=== PATIENT | male | born 1960 | race Caucasian/White ===

== ENCOUNTER 2020-02-12 12:18 | Emergency (ER) | payer OTHER, SELFPAY ==
--- NOTE | 2020-02-12 | XR_ITS ---
EXAMINATION: XR LUMBOSACRAL SPINE CLINICAL INFORMATION: Low back pain. COMPARISON: None TECHNIQUE: Three views of the lumbosacral spine. FINDINGS: The vertebral bodies and posterior elements are normal. The disc spaces are preserved and the vertebral alignment is normal. The paraspinal soft tissues are normal. IMPRESSION: Unremarkable examination.
[2020-02-12 12:25] VITALS: BP 135/85; BP 136/80; PULSE 63; PULSE 67; RESP 16; TEMP 36.7; O2SAT 100; O2SAT 99; BMI 29.9
--- NOTE | 2020-02-12 13:33 | ED_ITS ---
HPI - Back Pain/Injury General Chief Complaint: Back Pain/Injury Stated Complaint: NON TRAUMATIC BACK PAIN PER EMS Time Seen by Provider: 02/12/20 13:33 Source: patient Mode of arrival: ambulatory Limitations: no limitations History of Present Illness HPI Narrative: patient's history of off and on back problems started in 1998 muscle getting in spasm when the patient bends for some time usually gets better in a day or 2. never been admitted to the hospital never had an MRI or senior design engineering specialist seeing the patient. 2 days ago patient was bending while painting and got his lower back spasm unable to ambulate crawling on the floor no leg weakness no paresthesias no bladder or bowel involvement patient was taking ibuprofen without much relief and started on Flexeril by his PCP yesterday without much response Related Data Allergies Allergy/AdvReac Type Severity Reaction Status Date / Time No Known Allergies Allergy Unverified 02/12/20 12:24 Review of Systems Review of Systems: REVIEW OF SYSTEMS: Pertinent positives and negatives are stated above in the history. GEN: no fevers, chills, fatigue HEENT: no nasal congestion, sore throat, ear pain NEURO: no headache, dizziness, focal weakness PULM: no cough, shortness of breath CV: no chest pain, palpitations, LE edema ABD: no abdominal pain, nausea, vomiting, diarrhea : no dysuria, urgency, frequency SKIN: no rash ROS otherwise negative x 10 PMFSH Past Medical History Medical History Chronic back pain No known health problems Vertigo Social History Social History Smoking Status: Never smoker Smoked in Last 30 Days: No Use of substances other than those prescribed or required for medical reasons: No Advance Directives: No Advance Directives Information Provided: Yes Physical Exam Vital Signs and I&O and Narrative: Vital Signs and I&O: Vital Signs Temp 98.0 F 02/12/20 12:25 Pulse 63 02/12/20 15:17 Resp 16 02/12/20 15:17 BP 128/78 02/12/20 15:17 Pulse Ox 95 02/12/20 15:17 Intake & Output 02/11/20 02/12/20 02/12/20 18:59 06:59 18:59 Weight 97.522 kg Body Mass Index 29.9 VITAL SIGNS: Reviewed. GENERAL: Well developed, well nourished, in moderate distress. HEAD: Normocephalic/atraumatic, Posterior oropharynx was without edema, erythema or exudate. EYES: PERRLA, Pupils <>, EOMI intact without pain, no nystagmus/pallor/icterus noted EARS: Ext canals without abnormality, TMs non-bulging and non-erythematous NOSE: Nares patent bilateral OROPHARYNX: no oral lesions noted, posterior pharynx clear and non-erythematous without noted tonsillar enlargement/erythema/exudates NECK: Supple, no adenopathy LUNGS: Normal breath sounds. No adventitious sounds or accessory muscle use. SpO2<> CARDIOVASCULAR: Regular rate and rhythm without noted murmurs, no JVD or lower extremity edema. ABDOMEN: Soft, non-tender, non-distended with bowel sounds. No rigidity. No guarding. No palpable masses or hernias noted MUSCULOSKELETAL: moderate tenderness paraspinal at lumbar area, no deformities, or effusions noted on gross inspection. [id number] both lower extremities normal good plantar flexion and extension. Secral sensations are intact EXTREMITIES: No cyanosis, clubbing or edema. SKIN: Inspection of the skin reveals no rashes, ulcerations, jaundice, pallor, or petechiae NEUROLOGIC: Alert and oriented x 3. Strength and sensation to light touch were grossly intact x 4. Course Course Course Narrative: patient with severe low back muscle spasm without any clinical damage to spinal cord . With normal motor strength. Patient received IM morphine 10 mg and Decadron 10 mg p.o. still feeling lot of spasm and not able to move will get IV Dilaudid Soma p.o. and Toradol IV. Patient x-rays negative for any bony damage. patient signed out to Dr. Oliver for evaluation and discharge
[2020-02-12] MEDS: Morphine Sulfate 4 MG/ML CARTRIDGE 10 MG IM (14:14)
[2020-02-12] MEDS: dexAMETHasone 2 MG TABLET 10 MG PO (14:15)
[2020-02-12 15:17] VITALS: BP 128/78; PULSE 63; RESP 16; O2SAT 95
[2020-02-12] MEDS: HYDROmorphone HCl 1 MG/ML SYRINGE IVPUSH (16:38)
[2020-02-12] MEDS: Ketorolac Tromethamine 30 MG/ML VIAL IVPUSH (16:38)
[2020-02-12] MEDS: carisoprodoL 350 MG TABLET PO (16:39)
[2020-02-12 17:18] VITALS: BP 132/84; PULSE 73; RESP 14; O2SAT 94
[2020-02-12 18:30] VITALS: BP 119/69; PULSE 66; RESP 16; O2SAT 93
[2020-02-12 20:08] VITALS: BP 119/68; PULSE 69; RESP 16; TEMP 36.6; O2SAT 96
[2020-02-12 22:00] VITALS: RESP 16
[2020-02-13] VITALS: BP 118/68; PULSE 65; RESP 16; TEMP 36.7; O2SAT 94
[2020-02-13 03:02] VITALS: BP 92/37; PULSE 64; RESP 16; O2SAT 95
[2020-02-13 06:00] VITALS: RESP 16
[2020-02-13 08:06] VITALS: BP 92/37; PULSE 64; O2SAT 95
[2020-02-13 08:35] VITALS: BP 121/66; PULSE 65; RESP 17; TEMP 36.6; O2SAT 95
--- NOTE | 2020-02-13 14:45 | MHC.CM.ED ---
pt has requested to have ref. made to [facility] for [facility] and home PT. ref. was made and pt accepted. john rn and md are aware of dc plan. cm to cont. to follow.
== END 2020-02-13 11:57 | disposition home or self-care (01) ==
PROVIDERS: Emergency Provider Emergency Medicine; PCP Internal Medicine
DX: M54.5 Low back pain (principal); M62.830 Muscle spasm of back
CPT/HCPCS: 72100; 96372; 96374; 96375; 97162; 99284; 99285; J1170; J1885; J2270

== ENCOUNTER 2020-07-22 13:50 | Outpatient (REF) | payer OTHER, SELFPAY ==
[2020-07-22 14:41] LABS: Influenza A PCR NEGATIVE (Negative); Influenza B PCR NEGATIVE (Negative); Resp Syncy Virus RNA Qual PCR NEGATIVE (Negative); SARS COV2 PCR INHOUSE NEGATIVE (Negative)
== END 2020-07-22 13:51 | disposition home or self-care (01) ==
LOC: HO.LNP 13:50
PROVIDERS: Visit Provider Internal Medicine
DX: R68.83 Chills (without fever) (principal); R51.9 Headache, unspecified; R52 Pain, unspecified; Z20.822 Contact with and (suspected) exposure to COVID-19
CPT/HCPCS: 0241U

== ENCOUNTER 2020-07-29 12:23 | Outpatient (REF) | payer OTHER, SELFPAY ==
[2020-07-29 13:08] LABS: MANUAL DIFF FLAG NO
[2020-07-29 13:12] LABS: Basophils Absolute Auto 0.1 X10*3/uL (0.0-0.2); Eosinophils Absolute Auto 0.1 X10*3/uL (0.0-0.4); Eosinophils Percent Auto 1.6 % (0-4); Hematocrit 43.2 % (42-52); Hemoglobin 14.5 g/dl (14.0-18.0); Imm Gran Abs Auto 0.02 X10*3/uL (0.00-0.03); Imm Gran Pct Auto 0.3 % (0.0-0.4); Lymphocytes Absolute Auto 1.9 X10*3/uL (1.2-4.9); Lymphocytes Percent Auto 31.2 % (20-40); Mean Corpuscular HGB Conc 33.6 g/dl (31.0-36.0); Mean Corpuscular Volume 89.3 fL (80-98); Mean Platelet Volume 9.4 fL (9.4-12.4); Monocytes Absolute Auto 0.5 X10*3/uL (0.1-1.2); Monocytes Percent Auto 8.1 % (2-11); Neutrophils Absolute Auto 3.6 X10*3/uL (2.0-8.3); Neutrophils Percent Auto 57.8 % (45-73); Platelet Count 266 X10*3/uL (160-400); Red Blood Count 4.84 X10*6/uL (4.60-5.80); White Blood Count 6.2 X10*3/uL (4.8-10.8)
[2020-07-29 13:43] LABS: Alanine Aminotransferase 30 U/L (0-40); Albumin Level 4.4 g/dL (3.5-5.0); Alkaline Phosphatase 69 U/L (39-117); Anion Gap 14 (12-20); Aspartate Amino Transferase 20 U/L (5-37); Bilirubin Total 0.5 mg/dL (0.0-1.0); Blood Urea Nitrogen 22 mg/dL (9-16); Calcium 9.4 mg/dL (8.4-10.2); Carbon Dioxide 29 mmol/L (22-29); Chloride 101 mmol/L (96-108); Estimated Glomerular Filt Rate 54; Glucose Random 113 mg/dL (60-115); Potassium 4.5 mmol/L (3.3-5.1); Sodium 139 mmol/L (135-145); Total Protein 6.9 g/dL (6.5-8.0)
[2020-07-29 14:04] LABS: Free T4 (Free Thyroxine) 1.05 ng/dL (0.71-1.85); Thyroid Stimulating Hormone 1.01 uIU/mL (0.32-4.0)
[2020-07-29 14:09] LABS: Glucose Urine UA NEG (NEG); Leukocyte Esterase Urine NEG (NEG); Nitrite Urine NEG (NEG); PH 5.5 (5.0-8.0); Specific Gravity - Urine >= 1.030 (1.005-1.025); Urine Blood TRACE (NEG); Urine Ketones NEG (NEG); Urine Protein NEG (NEG-TRACE)
[2020-07-29 14:24] LABS: Appearance Urine CLEAR; Color Urine YELLOW
[2020-07-29 15:24] LABS: RBC Urine 0 /HPF (0); Squamous Epithelial Cell Urine TRACE /LPF; WBC Urine 0 /HPF (0-4)
== END 2020-07-29 12:24 | disposition home or self-care (01) ==
LOC: HO.LAB 12:23
PROVIDERS: PCP Internal Medicine; Visit Provider Internal Medicine
DX: R51.9 Headache, unspecified (principal); R42 Dizziness and giddiness; R53.83 Other fatigue; B34.9 Viral infection, unspecified
CPT/HCPCS: 36415; 80053; 81001; 81003; 82550; 84439; 84443; 85025; 86140; 87086

== ENCOUNTER 2020-08-13 15:20 | Outpatient (REF) | payer OTHER, SELFPAY ==
--- NOTE | ~2020-08-13 | CT_ITS ---
EXAMINATION: CT HEAD WITH/WITHOUT CONTRAST CLINICAL INFORMATION: Dizziness with vertigo COMPARISON: None TECHNIQUE: Contiguous axial imaging was performed from the skull base to vertex before and after the administration of 85 mL of Omnipaque [address] examination was performed using dose optimization techniques as appropriate, variously including the following: *Automated exposure control *Adjustment of mA and/or kV according to patient size (this includes techniques or standardized protocols for targeted exams where dose is matched to indication/reason for exam; i.e. extremities or head) *Use of iterative reconstruction technique DLP: 1894 mGy-cm FINDINGS: There is no evidence of acute intracranial hemorrhage or territorial infarction. No abnormal mass effect or midline shift is seen. Noe to white matter differentiation is well preserved. No extra-axial fluid collections are identified. There is no abnormal enhancement. The ventricles are normal in size. There is no abnormal attenuation within the brain parenchyma. The osseous structures and soft tissues are normal. The mastoid air cells and visualized portions of the paranasal sinuses are well aerated. CT/CT head/brain wo/w con IMPRESSION: No acute intracranial pathology.
== END 2020-08-13 15:21 | disposition home or self-care (01) ==
LOC: HO.CT 15:20
PROVIDERS: PCP Internal Medicine; Visit Provider Internal Medicine
DX: H81.4 Vertigo of central origin (principal)
CPT/HCPCS: 70470; Q9967

== ENCOUNTER 2022-01-30 16:55 | Outpatient (REF) | payer OTHER, SELFPAY ==
[2022-01-30 17:44] LABS: Influenza A PCR NEGATIVE (Negative); Influenza B PCR NEGATIVE (Negative); Resp Syncy Virus RNA Qual PCR NEGATIVE (Negative); SARS COV2 PCR INHOUSE NEGATIVE (Negative)
== END 2022-01-30 16:56 | disposition home or self-care (01) ==
LOC: HO.LNP 16:55
PROVIDERS: Visit Provider Internal Medicine
DX: Z20.822 Contact with and (suspected) exposure to COVID-19 (principal); R50.9 Fever, unspecified
CPT/HCPCS: 0241U

== ENCOUNTER 2022-04-06 12:37 | Outpatient (REF) | payer OTHER, SELFPAY ==
[2022-04-06 12:51] LABS: MANUAL DIFF FLAG NO
[2022-04-06 13:19] LABS: Basophils Absolute Auto 0.1 X10*3/uL (0.0-0.2); Basophils Percent Auto 0.8 % (0-2); Eosinophils Absolute Auto 0.1 X10*3/uL (0.0-0.4); Eosinophils Percent Auto 1.7 % (0-4); Hematocrit 44.2 % (42.0-52.0); Hemoglobin 14.5 g/dl (14.0-18.0); Imm Gran Abs Auto 0.02 X10*3/uL (0.00-0.03); Imm Gran Pct Auto 0.3 % (0.0-0.4); Lymphocytes Percent Auto 30.4 % (20-40); Mean Corpuscular HGB Conc 32.8 g/dl (31.0-36.0); Mean Corpuscular Hemoglobin 29.5 pg (27.0-33.0); Mean Corpuscular Volume 89.8 fL (80.0-98.0); Mean Platelet Volume 9.9 fL (9.4-12.4); Monocytes Absolute Auto 0.5 X10*3/uL (0.1-1.2); Monocytes Percent Auto 8.2 % (2-11); Neutrophils Absolute Auto 3.9 x10*3/uL (2.0-8.3); Neutrophils Percent Auto 58.6 % (45-73); Platelet Count 252 X10*3/uL (160-400); Red Blood Count 4.92 X10*6/uL (4.60-5.80); White Blood Count 6.6 X10*3/uL (4.8-10.8)
[2022-04-06 13:45] LABS: Alanine Aminotransferase 27 U/L (0-40); Albumin Level 4.6 g/dL (3.5-5.0); Alkaline Phosphatase 83 U/L (39-117); Anion Gap 14 (12-20); Aspartate Amino Transferase 21 U/L (5-37); Bilirubin Total 0.6 mg/dL (0.0-1.0); Blood Urea Nitrogen 20 mg/dL (9-16); Calcium 9.7 mg/dL (8.4-10.2); Carbon Dioxide 28 mmol/L (22-29); Chloride 103 mmol/L (96-108); Cholesterol 267 mg/dL; Estimated Glomerular Filt Rate > 60; Glucose Random 87 mg/dL (60-115); HDL Cholesterol 55 mg/dL; LDL Cholesterol Calculated 191 mg/dl; Potassium 4.7 mmol/L (3.3-5.1); Sodium 140 mmol/L (135-145); Total Protein 7.2 g/dL (6.5-8.0); Triglycerides 109 mg/dL
[2022-04-06 14:05] LABS: Prostate Specific Antigen 1.54 ng/mL (<0.05-4.0)
[2022-04-06 17:21] LABS: Appearance Urine Clear; Color Urine Yellow; Glucose Urine UA Negative (Negative); Leukocyte Esterase Urine Negative (Negative); Nitrite Urine Negative (Negative); PH 5.5 (5.0-9.0); Urine Blood Negative (Negative); Urine Ketones Negative (Negative); Urine Protein Negative (Neg-Trace)
== END 2022-04-06 12:38 | disposition home or self-care (01) ==
LOC: HO.LAB 12:37
PROVIDERS: PCP Internal Medicine; Visit Provider Internal Medicine
DX: Z00.00 Encounter for general adult medical examination without abnormal findings (principal); Z12.5 Encounter for screening for malignant neoplasm of prostate
CPT/HCPCS: 36415; 80053; 80061; 81003; 84153; 85025

== ENCOUNTER 2022-04-29 15:04 | Outpatient (REF) | payer OTHER, SELFPAY ==
[2022-04-29 15:50] LABS: Influenza A PCR NEGATIVE (Negative); Influenza B PCR NEGATIVE (Negative); Resp Syncy Virus RNA Qual PCR NEGATIVE (Negative); SARS COV2 PCR INHOUSE NEGATIVE (Negative)
== END 2022-04-29 15:05 | disposition home or self-care (01) ==
LOC: HO.LNP 15:04
PROVIDERS: Visit Provider Internal Medicine
DX: Z20.822 Contact with and (suspected) exposure to COVID-19 (principal); R05.9 Cough, unspecified; R09.89 Other specified symptoms and signs involving the circulatory and respiratory systems
CPT/HCPCS: 0241U

== ENCOUNTER 2023-08-25 07:53 | Outpatient (REF) | payer OTHER, SELFPAY ==
[2023-08-25 08:05] LABS: MANUAL DIFF FLAG NO
[2023-08-25 08:48] LABS: Basophils Absolute Auto 0.1 X10*3/uL (0.0-0.2); Basophils Percent Auto 0.9 % (0-2); Eosinophils Absolute Auto 0.1 X10*3/uL (0.0-0.4); Eosinophils Percent Auto 2.3 % (0-4); Hematocrit 42.5 % (42.0-52.0); Hemoglobin 14.3 g/dl (14.0-18.0); Imm Gran Abs Auto 0.02 X10*3/uL (0.00-0.03); Imm Gran Pct Auto 0.4 % (0.0-0.4); Lymphocytes Percent Auto 35.5 % (20-40); Mean Corpuscular HGB Conc 33.6 g/dl (31.0-36.0); Mean Corpuscular Hemoglobin 30.8 pg (27.0-33.0); Mean Corpuscular Volume 91.4 fL (80.0-98.0); Mean Platelet Volume 10.3 fL (9.4-12.4); Monocytes Absolute Auto 0.5 X10*3/uL (0.1-1.2); Monocytes Percent Auto 9.3 % (2-11); Neutrophils Absolute Auto 2.9 x10*3/uL (2.0-8.3); Neutrophils Percent Auto 51.6 % (45-73); Platelet Count 210 X10*3/uL (160-400); Red Blood Count 4.65 X10*6/uL (4.60-5.80); Red Cell Distribution Width 12.6 % (11.0-16.0); White Blood Count 5.6 X10*3/uL (4.8-10.8)
[2023-08-25 09:45] LABS: Alanine Aminotransferase 29 U/L (0-40); Albumin Level 4.2 g/dL (3.5-5.0); Alkaline Phosphatase 77 U/L (39-117); Anion Gap 11 (12-20); Aspartate Amino Transferase 25 U/L (5-37); Bilirubin Total 0.6 mg/dL (0.0-1.0); Blood Urea Nitrogen 31 mg/dL (9-16); Calcium 9.1 mg/dL (8.4-10.2); Carbon Dioxide 26 mmol/L (22-29); Chloride 108 mmol/L (96-108); Cholesterol 152 mg/dL (<200); Estimated Glomerular Filt Rate > 60; Glucose Random 99 mg/dL (60-115); HDL Cholesterol 47 mg/dL (>40); LDL Cholesterol Calculated 95 mg/dL (<100); Potassium 4.4 mmol/L (3.3-5.1); Sodium 141 mmol/L (135-145); Total Protein 6.8 g/dL (6.5-8.0); Triglycerides 53 mg/dL (<150)
== END 2023-08-25 07:54 | disposition home or self-care (01) ==
LOC: HO.LAB 07:53
PROVIDERS: PCP Internal Medicine; Visit Provider Internal Medicine
DX: Z12.5 Encounter for screening for malignant neoplasm of prostate (principal); E78.00 Pure hypercholesterolemia, unspecified; K57.90 Diverticulosis of intestine, part unspecified, without perforation or abscess without bleeding
CPT/HCPCS: 36415; 80053; 80061; 84153; 85025

== ENCOUNTER 2025-03-05 16:01 | Outpatient (REF) | payer OTHER, SELFPAY ==
[2025-03-05 17:03] LABS: MANUAL DIFF FLAG NO
[2025-03-05 17:27] LABS: Hematocrit 43.8 % (42.0-52.0); Hemoglobin 14.2 g/dl (14.0-18.0); Imm Gran Abs Auto 0.03 X10*3/uL (0.00-0.03); Imm Gran Pct Auto 0.4 % (0.0-0.4); Lymphocytes Absolute Auto 2.2 X10*3/uL (1.2-4.9); Mean Corpuscular HGB Conc 32.4 g/dl (31.0-36.0); Mean Corpuscular Hemoglobin 29.6 pg (27.0-33.0); Mean Corpuscular Volume 91.4 fL (80.0-98.0); NRBC Abs Auto 0.000 X10*3/uL (0.0-0.012); NRBC Pct Auto 0.0 /100WBC (0.0-0.2); Platelet Count 249 X10*3/uL (160-400); Red Blood Count 4.79 X10*6/uL (4.60-5.80); White Blood Count 7.3 X10*3/uL (4.8-10.8)
[2025-03-05 17:51] LABS: Alanine Aminotransferase 25 U/L (0-40); Albumin Level 4.8 g/dL (3.5-5.0); Alkaline Phosphatase 90 U/L (39-117); Anion Gap 12 (12-20); Aspartate Amino Transferase 40 U/L (5-37); Blood Urea Nitrogen 21 mg/dL (9-16); Calcium 9.4 mg/dL (8.4-10.2); Carbon Dioxide 29 mmol/L (22-29); Chloride 106 mmol/L (96-108); Cholesterol 260 mg/dL (<200); Estimated Glomerular Filt Rate > 60; HDL Cholesterol 46 mg/dL (>40); Potassium 4.7 mmol/L (3.3-5.1); Sodium 142 mmol/L (135-145); Total Protein 7.4 g/dL (6.5-8.0); Triglycerides 255 mg/dL (<150)
[2025-03-05 18:09] LABS: PSA,Total (Free>4and<10) 1.61 ng/mL (0.00-4.00)
[2025-03-06 03:33] LABS: Syphilis Screen Nonreactive (Nonreactive)
[2025-03-06 03:35] LABS: Hepatitis A Antibody IgM 0.24 Index (0-0.79); ~Hepatitis A Antibody IgM Nonreactive (Nonreactive)
[2025-03-06 04:04] LABS: HBS Num1 2.21 mIU/mL (0-7.99); HBc Num1 0.06 S/CO (0.00-0.79); HBsAGNum1 0.39 S/CO (0.00-0.99); HIV Num 1 0.05 S/CO (0.00-0.99); Hepatitis B Surface Antigen Negative (Negative); ~HepC Num1 0.08 S/CO (0.00-0.79); ~Hepatitis B Surface Antibody NONREACTIVE (Nonreactive); ~Hepatitis C Antibody Nonreactive (Nonreactive)
== END 2025-03-05 16:02 | disposition home or self-care (01) ==
LOC: HO.LAB 16:01
PROVIDERS: PCP Student in an Organized Health Care Education/Training Program; Visit Provider Student in an Organized Health Care Education/Training Program
DX: Z76.89 Persons encountering health services in other specified circumstances (principal); Z12.5 Encounter for screening for malignant neoplasm of prostate; E78.49 Other hyperlipidemia; B35.6 Tinea cruris; Z79.899 Other long term (current) drug therapy
CPT/HCPCS: 36415; 80053; 80061; 82306; 83036; 84153; 84443; 85025; 86704; 86706; 86709; 86780; 86803; 87340; 87389; 96127

== ENCOUNTER 2025-03-05 16:01 | Outpatient (AMB) | payer OTHER, SELFPAY ==
--- NOTE | 2025-03-05 15:30 | A.OFFPC_ITS ---
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 His lipid panel from last year showed an LDL level of 95 mg/dL, which was a significant reduction from a previous level of 191 mg/dL while taking atorvastatin 20 mg. He reports he has been without his atorvastatin for about six weeks and requires a refill. The patient also reports a persistent jock itch, described as a light lafleur area, which he treats with Lotrimin. The cream provides relief for a day or two before the itching returns, and he associates the condition with frequent bike riding. Past medical history is otherwise unremarkable, with no other chronic conditions reported. He reports a history of anxiety related to his environment while growing up, for which he attends [facility]. His last colonoscopy was six to seven years ago, and his last prostate exam was about five years ago. Medical History: - Hyperlipidemia - Tinea cruris - Allergy to Reza grass and cat dander - History of anxiety Surgical History: - Tonsillectomy in the second grade Medications: - Atorvastatin 20 mg for hyperlipidemia (last taken 6 weeks ago) - Lotrimin cream for tinea cruris Family History: - Father: of skin cancer; was a smo ker and drinker. - Mother: of lung cancer; was a smo ker and drinker. - No family history of diabetes. Diagnostic Results: - Labs (from over one year ago): Blood c ounts and electrolytes were normal. - Lipid panel (from last year): LDL was 95 mg/dL, down from 191 mg/dL. Social History: - Tobacco Use: Denies ever smoking. - Alcohol Use: Drinks alcohol rarely, ab out one beer every six months. - Illicit Drug Use: Denies use of mariju julian, heroin, or cocaine. - Occupation: Retired teacher. - Education: Currently pursuing a master 's degree in theology and plans to pursue another in philosophy. - Exercise: Bicycles 100 miles per week since July and walks during other times of the year. - Behavioral Health: Attends [facility] for anxiety. [facility] Medical History (Updated 03/05/25 @ 16:29 by Gaurang Saldaña MD) Tinea lorauris Hyperlipidemia No known health problems Vertigo Chronic back pain Family History (Updated 03/05/25 @ 16:12 by Marianna Goodman MA) Mother No problems noted. Father No problems noted. Social History Housing: House Patient Tobacco Use Status: Never used Tobacco e-Cigarette/Vaping Use: Never Used service: No Current occupational status: retired Cognitive needs: No Hearing needs: No Vision needs: Yes (reading glasses) Questionnaire PHQ-9 Over the last 2 weeks, how often have you been bothered by any of the following problems? 1. Little interest or pleasure in doing things: not at all 2. Feeling down, depressed, or hopeless: not at all 3. Trouble falling or staying asleep, or sleeping too much: not at all 4. Feeling tired or having little energy: not at all 5. Poor appetite or overeating: not at all 6. Feeling bad about yourself - or that you are a failure or have let yourself or your family down: not at all 7. Trouble concentrating on things, such as reading the newspaper or watching television: not at all 8. Moving or speaking so slowly that other people could have noticed. Or the opposite - being so fidgety or restless that you have been moving around a lot more than usual: not at all 9. Thoughts that you would be better off or of hurting yourself in some way: not at all Total score: 0 Depression Screening Interpretation: Negative Depression Screening Done: Yes 44740 - PHQ-9 Billing: Yes Source: Developed by Drs. Scott Ervin, Alphonso Elliott and colleagues, with an educational soham from [employer]. Thrive Questionnaire Date Thrive assessed: 03/05/25 I am a: Patient What is your living situation today?: I have a steady place to live Within the past 12 months, did the food you bought not last and you didn't have the money to get more?: Never true Within the past 12 months, did you worry whether your food would run out before you got money to buy more?: Never true Do you have trouble paying for medicines?: No Do you have trouble getting transportation to medical appointments?: No Do you have trouble paying your heating and electricity bill?: No Do you have trouble taking care of your child, family member or friend?: No Do you have trouble with day-to-day activities such as bathing, preparing meals, shopping, managing finances, etc.?: No Are you currently unemployed and looking for a job?: No Are you interested in more education?: No THRIVE Score: 0 AUDIT C Alcohol Use Questionnaire (AUDIT-C) 1. How often do you have a drink containing alcohol?: Monthly or less 2. How many drinks containing alcohol do you have on a typical day when you are drinking?: 1 or 2 3. How often do you have six or more drinks on one occasion?: Less than monthly Total Score: 2 Score Reviewed/Action Taken: Yes RELL-7 AMB Questionnaire RELL-7 Date RELL - 7 assessed: 03/05/25 Feeling nervous, anxious, or on edge: 0 = Not at all Not being able to stop or control worryin = Not at all Worrying too much about different things: 0 = Not at all Trouble relaxin = Not at all Being so restless that it is hard to sit still: 0 = Not at all Becoming easily annoyed or irritable: 0 = Not at all Feeling afraid as if something awful might happen: 0 = Not at all Total RELL-7 score (0-4 normal; 5-9 mild; 10-14 moderate; 15-21 severe): 0 Source: Developed by Edilia Rodriguez Kurt Kroenke and colleagues, with an educational soham from [employer]. RELL-7 Assessment Billing RELL-7 Assessment Tool: RELL-7 Assessment 59709 Review of Systems Narrative - Integumentary: Reports an itchy rash in the groin area. - Gastrointestinal: Denies nausea or vomiting; reports normal bowel movements. - Cardiovascular: Denies chest pain. - Respiratory: Denies shortness of breath. - Musculoskeletal: Denies leg swelling. - Psychiatric: Reports a history of anxiety but denies depression. All systems reviewed & are unremarkable except as reviewed in HPI and above Physical exam (Primary Care) Vital Signs: Last Vital Signs Temp 97.2 F 03/05/25 16:08 Pulse 64 03/05/25 16:08 BP 124/80 03/05/25 16:08 Pulse Ox 98 03/05/25 16:08 Oxygen Delivery Method Room Air 03/05/25 16:08 BMI result Body Mass Index 23.5 Tobacco/Smoking Status: Tobacco use Status Tobacco use date assessed 03/05/25 03/05/25 15:32 Patient Tobacco Use Status Never used Tobacco 03/05/25 15:32 e-Cigarette/Vaping Use Never Used 03/05/25 15:32 PHQ-9: PHQ-9 Score PHQ-9: Total score 0 03/05/25 16:13 Depression Screening Interpretation: Negative Thrive Assessment: Date of Thrive Assessment Date Thrive assessed 03/05/25 03/05/25 15:32 Narrative General: +Alert and oriented, Well nourished, No acute distress. Eye: Pupils are equal, round and reactive to light, Intact accommodation, Extraocular movements are intact, Normal conjunctiva, Vision unchanged. HENT: Normocephalic, Atraumatic, Tympanic membranes are clear, Normal hearing, Oral mucosa is moist, No pharyngeal erythema, Ear canals patent. Respiratory: Lungs CTA bilaterally, No wheeze, Respirations are non-labored. Cardiovascular: Regular rate, Regular rhythm, S1 auscultated, S2 auscultated, No murmur, Good pulses equal in all extremities, Normal peripheral perfusion, No edema. Gastrointestinal: Soft, Non-tender, Non-distended, Normal bowel sounds, No organomegaly. Musculoskeletal: Normal range of motion, Normal strength, No tenderness, No swelling, No deformity, Normal gait. Integumentary: Warm, Dry, [place], Intact. Neurologic: Alert, Oriented, Normal sensory, Normal motor function, No focal defects, Cranial Nerves II-XII are grossly intact, Normal deep tendon reflexes. Psychiatric: Cooperative, Appropriate mood & affect, Normal judgment, Reports history of anxiety related to environmental factors, attends [employer] for support. Coding Level of Care Code New Pt Level 3 (32863) Diagnoses Other hyperlipidemia E78.49 Hyperlipidemia type: other hyperlipidemia Tinea cruris B35.6 Additional Codes PHQ-9 - 98586 - PHQ-9 Billing: Yes ([id number]) RELL-7 Assessment Billing - RELL-7 Assessment Tool: RELL-7 Assessment 17201 ([id number]) Assessment & Plan Assessment & Plan (1) Hyperlipidemia: Comment: - Continue Atorvastatin at 20mg for now, will await repeat lipid panel and decide on dosing based on ASCVD risk Code(s): E78.5 - Hyperlipidemia, unspecified Category: Medical Qualifiers: Hyperlipidemia type: other hyperlipidemia Qualified Code(s): E78.49 - Other hyperlipidemia (2) Tinea cruris: Comment: - The patient experiences itching which improves when using Lotrimin cream, however likely exacerbated by bicycling. - Recommended using supportive, padded bike shorts to reduce friction. - He should continue using Lotrimin cream. - If symptoms do not improve with these measures, he can call for a prescription medication. (Ketoconazole) Code(s): B35.6 - Tinea cruris Category: Medical Plan: Health Maintenance: - Colon Cancer Screening: Patient is due for a colonoscopy, with the last one being 6-7 years ago. A referral was ordered. - Prostate Cancer Screening: A PSA level was ordered at the patient's request, as his last check was about 5 years ago. - Lung Cancer Screening: Discussed and determined not to be indicated as the patient has never smoked. - Laboratory Screening: Ordered a comprehensive panel including electrolytes, cholesterol, sugars, thyroid, vitamin D, hepatitis, HIV, and a urinalysis. - Healthy Lifestyle: Patient is commended for his exercise regimen of biking 100 miles per week. Patient was informed and verbally consented to the use of an ambient scribe for clinic note documentation during this visit. Plan I informed the patient that as this was a new patient visit, we would conduct a more detailed review. I reviewed his past records, noting the commendable improvement in his LDL cholesterol to 95 and explained that I would be ordering a new set of comprehensive labs to get an updated baseline, especially since he has been off atorvastatin for about six weeks. We will use these results to determine if his medication dose needs to be adjusted. Regarding his jock itch, I explained my preference for behavioral changes before medications and recommended he use padded bike shorts to reduce irritation, in addition to continuing the Lotrimin cream. I advised him to call us for a prescription if these measures do not provide relief. We discussed that he is due for a colonoscopy, and I placed a referral for the procedure. I also ordered a PSA test for prostate screening at his request, after a brief discussion of the current USPSTF guidelines. I informed him all orders were placed electronically, and he could proceed directly to the lab. We will communicate results via the patient portal and will plan for a follow-up visit in six months. Orders: Orders Comprehensive Met. Panel Today Z76.89 - Persons encountering health services in other specified circumstances Hemoglobin A1c Today Z76.89 - Persons encountering health services in other specified circumstances HIV Ab/Ag Today Z76.89 - Persons encountering health services in other specified circumstances TSH reflex Free T4 Today Z76.89 - Persons encountering health services in other specified circumstances PSA,Total (Free>4and<10) Today Z76.89 - Persons encountering health services in other specified circumstances Complete Blood Count Auto Diff Today Z76.89 - Persons encountering health services in other specified circumstances Hepatitis A,B,C Profile Today Z76.89 - Persons encountering health services in other specified circumstances Lipid Panel Today Z76.89 - Persons encountering health services in other specified circumstances Syphilis Screen Today Z76.89 - Persons encountering health services in other specified circumstances Vitamin D 25-OH Total Today Z76.89 - Persons encountering health services in other specified circumstances Microalbumin, Random (w Creat) Today Z76.89 - Persons encountering health services in other specified circumstances Referrals Gastroenterology Referral Z12.11 - Encounter for screening for malignant neoplasm of colon Patient Instructions: - All your lab orders have been sent electronically. Please go to the hospital lab to have your blood drawn and to provide a urine sample. - For the itchy rash in your groin area, continue using the Lotrimin cream. - Try wearing your padded bike shorts when you ride your bike to help protect the skin from rubbing. - If the rash does not get better with these steps, please call our office, and we can prescribe a different cream. - We have put in a referral for you to schedule a colonoscopy. - We will contact you with your lab results through the online patient portal. - Please schedule a follow-up appointment in about six months.
[2025-03-05 16:08] VITALS: BP 124/80; PULSE 64; TEMP 36.2; O2SAT 98; BMI 23.5
--- OUTSIDE RECORDS SUMMARY | 2025-03-05 18:59 | XMS_ITS | Patient Health Record ---
Author Organization [facility] Address [address] [place] [address] Care Team Providers Care Industrial Service Technician Name Role Phone Faith (RETIRED) Sergey HOYT Primary Care Provide r Unavailable Scott Conteh Unavailable [phone] Reason For Referral No Information Problems Problem Type SNOMED Code ICD Code Onset Dates Problem Status W/U Status Risk Notes Problem Screening for malignant neoplasm of colon (730542669) Encounter for screening for malignant neoplasm of colon (Z12.11) Active confirmed Problem Screening for malignant neoplasm of rectum (517299033) Encounter for screening for malignant neoplasm of rectum (Z12.12) Active confirmed Problem Preprocedural examination (035175890521931) Preprocedural examination (Z01.818) Active confirmed Problem Dysphagia (09055546) Dysphagia, unspecified type (R13.10) Active confirmed Plan Of Treatment Future Test Test Name Order Date COLONOSCOPY 12/04/2015 Insurance Providers Payer Name Payer Address Payer Phone Subscriber Number Group Number Insured Name Patient Relationship to Insured Coverage Start Date Coverage End Date [facility] [address] [facility] [phone] [id number] ESTHER SCHULTZ Self - patient is the insured Medical (General) History Medical History History ICD Code Denies [place],DM,CVA,Lung disease,renal dise ase Surgical History Surgery Date(Month/Year) tonsillectomy and adenoidectomy
== END 2025-03-05 16:28 | disposition home or self-care (01) ==
LOC: HO.HMCHD 16:01
PROVIDERS: PCP Internal Medicine; Visit Provider Student in an Organized Health Care Education/Training Program
DX: E78.49 Other hyperlipidemia (principal); B35.6 Tinea cruris

== ENCOUNTER 2025-03-13 17:06 | Outpatient (REF) | payer OTHER, SELFPAY ==
--- OUTSIDE RECORDS SUMMARY | 2025-03-13 18:43 | XMS_ITS | Patient Health Record ---
Author Organization [facility] Address [address] [place] [address] Care Team Providers Care Car Porter Name Role Phone DORA IRVING M.D. Primary Care Provider Scott Alberto [phone] Reason For Referral No Information Problems Problem Type SNOMED Code ICD Code Onset Dates Problem Status W/U Status Risk Notes Problem Screening for malignant neoplasm of colon (474464395) Encounter for screening for malignant neoplasm of colon (Z12.11) Active confirmed Problem Screening for malignant neoplasm of rectum (697777024) Encounter for screening for malignant neoplasm of rectum (Z12.12) Active confirmed Problem Preprocedural examination (490041390478630) Preprocedural examination (Z01.818) Active confirmed Problem Dysphagia (52840821) Dysphagia, unspecified type (R13.10) Active confirmed Plan Of Treatment Future Test Test Name Order Date COLONOSCOPY 12/04/2015 Next Appt Details Provider Name:Scott Kirsty Wero , 07/06/2025 01:40:00 PM, [address], [address], [place], [address], Insurance Providers Payer Name Payer Address Payer Phone Subscriber Number Group Number Insured Name Patient Relationship to Insured Coverage Start Date Coverage End Date [employer] [address] [place] [phone] [id number] ESTHER GONZALES Self - patient is the insured Medical (General) History Medical History History ICD Code Denies [place],DM,CVA,Lung disease,renal dise ase Surgical History Surgery Date(Month/Year) tonsillectomy and adenoidectomy
== END 2025-03-13 17:07 | disposition home or self-care (01) ==
LOC: HO.10HDLNP 17:06
PROVIDERS: Visit Provider Student in an Organized Health Care Education/Training Program
DX: Z76.89 Persons encountering health services in other specified circumstances (principal)
CPT/HCPCS: 82570